=== PATIENT | male | born 1985 | race Hispanic/Latino ===

== ENCOUNTER → 2025-06-24 | Emergency (ER) | payer OTHER ==
[~2025-06-24] VITALS: Ht 162.6 cm; Wt 108.9 kg
[~2025-06-24] MED LIST: OMEP40CA21 PO
[2025-06-24 01:55] VITALS: BP 135/79; PULSE 87; RESP 20; TEMP 96.9
--- NOTE | 2025-06-24 02:00 | NUR ---
UA CUP PROVIDED
--- NOTE | 2025-06-24 02:21 | NUR ---
UA COLLECTED AND SENT
[2025-06-24 02:32] LABS: IMMATURE GRANULOCYTE ABSOLUTE 0.05 K/uL (0-1); NUCLEATED RED BLOOD CELLS 0.0 % (0.0-0.19); PLATELET COUNT (AUTO) 231 K/uL (130-400); RED BLOOD CELL COUNT(AUTO) 4.48 MIL/uL (4.50-6.20); RED CELL DISTRIBUTION WIDTH 13.2 % (11.0-15.5); WHITE BLOOD COUNT (AUTO) 7.8 K/uL (4.8-10.8)
[2025-06-24 02:34] LABS: ADD UA MICROSCOPIC YES; APPEARANCE,URINE CLEAR (CLEAR); GLUCOSE, URINE (UA) NEGATIVE (NEGATIVE); LEUKOCYTE ESTERASE ,URINE NEGATIVE Leu/uL (NEGATIVE); NITRATE,URINE NEGATIVE (NEGATIVE); OCCULT BLOOD,URINE NEGATIVE (NEGATIVE)
[2025-06-24 02:37] LABS: SQUAMOUS EPITHELIAL CELL,UR FEW /HPF (0-2)
[2025-06-24 02:39] LABS: CREATININE 1.0 mg/dL (0.5-1.3); GLOMERULAR FILTR. RATE CALC 99.0 mL/min (>90); GLUCOSE,RANDOM 100.0 mg/dL (70-105); SODIUM SERUM 142.0 mmol/L (136-145); UREA NITROGEN, BLOOD 15.0 mg/dL (7-18)
[2025-06-24 02:41] LABS: AMPHET/METH SCREEN,URINE NEGATIVE (NEGATIVE); BARBITURATE SCREEN, URINE NEGATIVE (NEGATIVE); CANNABINOID SCREEN,URINE NEGATIVE (NEGATIVE); COCAINE SCREEN,URINE NEGATIVE (NEGATIVE)
[2025-06-24] MEDS: DICYCLOMINE HCL 10 MG/5 ML ML PO ONE (03:06)
[2025-06-24] MEDS: MAG/ALUM/SIMETH 30 ML UDCUP PO ONE (03:06)
[2025-06-24] MEDS: LIDOCAINE HCL 2% VISCOUS 15 ML UDCUP PO ONE (03:07)
--- NOTE | 2025-06-24 03:14 | HMCIMG ---
EXAM: CR Chest, 1 view CLINICAL HISTORY: Shortness of breath. COMPARISON: None provided. FINDINGS: The lungs show no infiltrates or other acute findings. The bilateral CP angles are excluded from the image. No large pleural effusion or pneumothorax. The cardiomediastinal silhouette is within normal limits. No acute osseous abnormality. IMPRESSION: No acute cardiopulmonary process is evident. /[place]
--- NOTE | 2025-06-24 03:50 | ERN ---
ED Note History of Present Illness Stated Complaint: EPIGASTRIC PAIN Chief Complaint: Abdominal Pain Time Seen by MD: 02:30 Dictation: This is a 39-year-old male who presented to the emergency room with complaints of epigastric pain 2 hours prior to the presentation. Apparently he was seen and evaluated for earache and given antibiotics at another ER in [place] and started antibiotics as well as recommended to take Motrin for pain. Patient took Motrin and eventually began developing more epigastric pain. He denied any nausea vomitings sour eructations. No history of constipation or diarrhea. He denied any hematemesis or melena Temperature 96.9 pulse 87 respirations 20 blood pressure 135/79 with a pulse oximetry of 99% on room air Allergies: Coded Allergies: No Known Allergies (Unverified Allergy, Unknown, 06/24/25) Past Medical History Past Medical History: No Pertinent History Surgical History: Other Surgical History Other: BMT, RT WRIST Family History: Negative Social History: ETOH RN Note Reviewed/Agreed w/PFSH: Yes Review of System Dictation Constitutional: Negative for fever,chills, and weight loss Eyes: Negative for injury, pain,redness, and discharge ENT: Negative for injury,pain or swelling Cardiovascular: Negative for chest pain, palpitations, and edema Respiratory: Negative for shortness of breath, cough, and wheezing, Abdomen/GI: Positive for epigastric abdominal pain, denies nausea, vomiting, diarrhea, and constipation Back: Negative for injury and pain : Negative for injury, bleeding and discharge MS/Extremity: Negative for injury and deformity Skin: Negative for rash, and discoloration Neuro: Negative for headache, weakness, numbness, tingling, and seizure Psych: Negative for suicide ideation, homicidal ideation, and hallucinations Initial Vital Sign VS Vital Signs Date Time Temp Pulse Resp B/P (MAP) Pulse Ox O2 Delivery O2 Flow Rate FiO2 06/24/25 01:55 97.0 87 20 135/79 99 Room Air Physical Exam Dictation General: awake, alert, NAD extremely obese Head/Face: Normocephalic, atraumatic Eyes: PERRL, EOMI, vision at baseline ENT: oral cavity clear, TMs clear, no signs of infection Neck: Trachea midline, supple, no nuchal rigidity patient does not have any neck ;his neck size is more than 20 Cardiovascular: RRR, normal S1/S2, No MRGs, no JVD Respiratory: CTAB, no respiratory distress, No rales or wheezes Abdomen: Soft, non-tender, non-distended, normal bowel sounds, no guarding or rebound. Skin: Warm, dry, normal turgor, no rash MS/Extremity: Pulses equal, no cyanosis, neurovascular intact, FROM Neuro: COAx4, GCS 15, strength 5/5, CN 2-12 intact, normal cerebellar exam, normal gait, Psych: Normal behavior, mood, and affect normal Extremities-trace edema without any palpable cords, Homans sign is negative Results (Laboratory/Radiology) Laboratory/Radiology Laboratory Tests Test 06/24/25 00:21 06/24/25 02:20 Urine Color YELLOW (YELLOW) Urine Appearance CLEAR (CLEAR) Urine pH 6.0 (5.0-8.0) Urine Specific [place] 1.039 (1.001-1.031) Urine Protein 10 mg/dL (NEGATIVE) H Urine Glucose (UA) NEGATIVE mg/dL (NEGATIVE) Urine Ketones NEGATIVE mg/dL (NEGATIVE) Urine Occult Blood NEGATIVE (NEGATIVE) Urine Nitrate NEGATIVE (NEGATIVE) Urine Bilirubin 0.5 mg/dL (NEGATIVE) H Urine Urobilinogen 0.2 mg/dL (0.2-1.0) Urine Leukocyte Esterase NEGATIVE Chun/uL Urine RBC 0-1 /HPF (0-1) Urine WBC 2-5 /HPF (0-1) H Urine Squamous Epithelial Cells FEW /HPF (0-2) Urine Bacteria FEW /HPF (None Seen) Urine Opiates Screen NEGATIVE (NEGATIVE) Urine Barbiturates Screen NEGATIVE (NEGATIVE) Urine Phencyclidine Screen NEGATIVE (NEGATIVE) Urine Amphetamines Screen NEGATIVE (NEGATIVE) Urine Benzodiazepines Screen NEGATIVE (NEGATIVE) Urine Cocaine Screen NEGATIVE (NEGATIVE) Urine Marijuana (THC) Screen NEGATIVE (NEGATIVE) White Blood Count 7.8 K/uL (4.8-10.8) Red Blood Count 4.48 MIL/uL (4.50-6.20) L Hemoglobin 12.9 g/dL (14.0-18.0) L Hematocrit 39.5 % (42-54) L Mean Corpuscular Volume 88.2 fL (79-99) Mean Corpuscular Hemoglobin 28.8 pg (27.0-33.0) Mean Corpuscular Hemoglobin Concent 32.7 g/dL (32.0-36.0) Red Cell Distribution Width 13.2 % (11.0-15.5) Platelet Count 231 K/uL (130-400) Mean Platelet Volume 9.6 fL (7.5-10.5) Immature Granulocyte % (Auto) 0.6 % (0-1) Neutrophils (%) (Auto) 86.2 % (40.0-77.0) H Lymphocytes (%) (Auto) 7.9 % (21.0-51.0) L Monocytes (%) (Auto) 3.4 % (3.0-13.0) Eosinophils (%) (Auto) 1.4 % (0.0-8.0) Basophils (%) (Auto) 0.5 % (0.0-5.0) Neutrophils # (Auto) 6.8 K/uL (1.8-7.7) Lymphocytes # (Auto) 0.6 K/uL (1.0-4.8) L Monocytes # (Auto) 0.3 K/uL (0.1-1.0) Eosinophils # (Auto) 0.11 K/uL (0.00-0.70) Basophils # (Auto) 0.04 K/uL (0.00-0.20) Absolute Immature Granulocyte (auto 0.05 K/uL (0-1) Nucleated Red Blood Cells 0.0 % (0.0-0.19) White Cell Morphology Comment See comments Sodium Level 142 mmol/L (136-145) Potassium Level 3.7 mmol/L (3.5-5.1) Chloride Level 108 mmol/L (101-111) Carbon Dioxide Level 23 mmol/L (21-32) Blood Urea Nitrogen 15 mg/dL (7-18) Creatinine 1.0 mg/dL (0.5-1.3) Glomerular Filtration Rate Calc 99 mL/min (>90) Random Glucose 100 mg/dL (70-105) Total Calcium 8.8 mg/dL (8.5-10.1) Troponin I High Sensitivity < 4 ng/L (4-75) L Labs Reviewed?: Yes ED Course ED Course Orders Procedure Category Date Status Time Cbc With Differential LAB 06/24/25 Complete 01:56 Basic Metabolic Panel LAB 06/24/25 Complete 01:56 Troponin I High LAB 06/24/25 Complete Sensitivity 01:56 Chest 1vw RAD 06/24/25 Resulted 01:56 Urinalysis Profile LAB 06/24/25 Complete 01:56 Drug Screen Urine LAB 06/24/25 Complete 01:56 12 Lead Ekg Tracing- EKG 06/24/25 Logged Technical 01:56 Lidocaine Hcl 2% PHA 06/24/25 Complete Viscous (Lidocaine Hcl 03:00 Mag/Alum/Simeth 30ml PHA 06/24/25 Complete (Maalox Plus 30ml) 03:00 Dicyclomine Hcl PHA 06/24/25 Complete (Bentyl 10mg/5ml 03:00 Current Medications Medications (Trade) Dose Ordered Sig/Adalberto Route PRN Reason Start Time Stop Time Status Last Admin Dose Admin Al Hydroxide/Mg Hydroxide (MAALox PLUS 30ML) 30 ml ONCE ONCE PO 06/24/25 03:00 06/24/25 03:01 DC 06/24/25 03:06 Dicyclomine HCl (Bentyl 10mg/5ml Syrup) 10 mg ONCE ONCE PO 06/24/25 03:00 06/24/25 03:01 DC 06/24/25 03:06 Lidocaine HCl (Lidocaine HCl 2% Viscous) 10 ml ONCE ONCE PO 06/24/25 03:00 06/24/25 03:01 DC 06/24/25 03:07 Vital Signs Date Time Temp Pulse Resp B/P (MAP) Pulse Ox O2 Delivery O2 Flow Rate FiO2 06/24/25 01:55 97.0 87 20 135/79 99 Room Air We will perform diagnostic labs, imaging and administer medications according to the patient's complaint. Once the results are available, will review and personally interpreted the labs to rule out any acute life-threatening emergency the trach require immediate intervention and treatment. I will then re-evaluate the patient after treatment and diagnostic exams have return to determine whether the patient requires any further testing, can safely be discharged home or need further admission to hospital for additional treatment and evaluation. Medical Decision Making MDM Differential diagnosis: Gastritis, esophagitis, gastroesophageal reflux disease, peptic ulcer disease, biliary colic This is a 39-year-old male who presented to the emergency room with complaints of epigastric pain 2 hours prior to the presentation. Apparently he was seen and evaluated for earache and given antibiotics at another ER in [place] and started antibiotics as well as recommended to take Motrin for pain. Patient took Motrin and eventually began developing more epigastric pain. He denied any nausea vomitings sour eructations. No history of constipation or diarrhea. He denied any hematemesis or melena Temperature 96.9 pulse 87 respirations 20 blood pressure 135/79 with a pulse oximetry of 99% on room air 2:50 a.m. labs reviewed CBC is with a normal limits BNP 7 is normal troponins are negative urinalysis is unremarkable. 3:18 a.m.. Chest x-ray is unremarkable for any acute infiltrate. No pneumothorax. A trial of GI cocktail given Patient admits to feeling significantly improved Updated the patient on all the available labs and chest x-ray results Counseled him extensively on weight loss diet and exercise and the urgency in embarking on the journey to avoid long-term complications including sleep disorder related sudden deaths. He stated that he has a primary care physician and would follow up Rationale: Tests considered and ordered secondary to shared decision making include: Previous outside records reviewed: Old ER visits. Risk of complication and/or morbidity or mortality of patient management: None Medications-Per medication reconciliation Need for hospitalization: Patient does not meet criteria for hospitalization. Need for emergency major/minor surgery: No There are no social concerns with this patient. Prescription drug management Prescriptions will include symptomatic care Patient's prior external medical records from other ER visits were reviewed by me as indicated. Prior testing and results from previous visits were reviewed. Prior tests were taken into account with medical decision making and resource utilization, independent historian/historians were used to obtain complete medical history. I independently interpreted the test that were performed, results were reviewed by me and considered findings on radiology if ordered. Medical management and examination interpretation discussions were had by me with other qualified healthcare professionals as indicated for the patient's care. Problem List Problem List: (1) Gastritis (2) Morbid obesity DX & DISP Disposition: Discharge Departure Impression: Primary Impression: Gastritis Additional Impression: Morbid obesity Condition: Stable Scripts Omeprazole (Omeprazole) 40 Mg Capsule. 1 CAP PO DAILY for 30 Days, #30 CAP 0 Refills Prov: MAICOL POSEY MD 06/24/25 Additional Instructions: Patient and the caregiver have been informed of all the diagnostic tests and the imaging conducted during the today's visit to the emergency room and has verba lized understanding of the results I have personally reviewed and interpreted all diagnostic exams performed here in the ER today as well as the vital signs documented by the nursing staff. The patient is now being discharged to home and should follow up with the primary care physician or the specialist as directed by the ER staff. Extensive counseling done on 4. Weight loss diet and exercise stressed and education done. 5. Smoking cessation and toxic effects of tobacco and complications associated with worsening lung disease, incidents of lung cancer and other cancers cardiac arrest and . 6. Stop alcohol and resources for withdrawal and abstinence with addiction medicine offered. 7. Regular followups. Referrals: NONE MAICOL POSEY MD Jun 24, 2025 03:50
--- NOTE | 2025-06-24 05:32 | EKG ---
[facility] Test Date: 2025-06-24 Test Time: 01:56:14 Pat Name: SASHA TOMAS Department: [facility] Patient ID: [facility] [id number] Room: Gender: Melon Packer: [id number] [phone] 1985 Requested By: MAICOL POSEY Order Number: [id number] Reading MD: Jamilah Hook Measurements Intervals [place] Rate: 96 P: 35 [place]: 161 QRS: 45 QRSD: 94 T: 5 QT: 328 QTc: 414 Interpretive Statements Sinus rhythm No previous ECG available for comparison Electronically Signed On 06-26-2025 10:14:29 CDT by Jamilah Hook Please click the below link to view image of tracing.
== END ==
LOC: EDH 01:54
DX: K29.70 Gastritis, unspecified, without bleeding (principal); E66.01 Morbid (severe) obesity due to excess calories; Z94.81 Bone marrow transplant status; Z79.899 Other long term (current) drug therapy
CPT/HCPCS: 36415; 71045; 80048; 80305; 81001; 84484; 85025; 93005; 99283; 99285